=== PATIENT | female | born 1940 | race Caucasian/White ===

== ENCOUNTER 2020-05-19 05:43 | Observation (INO) ==
[2020-05-19] MEDS ORDERED: Buffered Lidocaine 1% SYRIN 1 ml INTRADERM ONE (06:00)
[2020-05-19] MEDS ORDERED: Lactated Ringers 1000 ml BAG 1,000 ML IV SCH (06:00)
[2020-05-19] MEDS ORDERED: ceFAZolin 2 GM PREMIX 2 GM/50 ML BAG ONE (06:34)
[2020-05-19] MEDS ORDERED: Midazolam 5 mg/5 ml VIAL 1 mg/ml 5 ml VIAL (5 mg) ONE (06:48)
[2020-05-19] MEDS ORDERED: fentaNYL 100 mcg/2 ml 50 MCG/ML VIAL ONE (06:48)
[2020-05-19] MEDS ORDERED: Phenylephrine 40 mcg/mL 10mL (400mcg) SYRINGE ONE (06:49)
[2020-05-19] MEDS ORDERED: Propofol 10 MG/ML 20 ML BTL ONE ×2 (06:49→09:31)
[2020-05-19] MEDS ORDERED: Sterile Water for Inj 10 ML ONE (06:49)
[2020-05-19] MEDS ORDERED: EPHEDrine (Pressors) 50 MG/ML VIAL ONE (06:49)
[2020-05-19] MEDS ORDERED: Bupivacaine 0.5% SDV PF 30ML VIAL ONE ×2 (06:49→07:21)
[2020-05-19] MEDS ORDERED: Phenylephrine IV 10 MG/ML 1 ml VIAL ONE (06:56)
[2020-05-19] MEDS ORDERED: ROPIVACAINE 5 MG/ML 30 ML BTL (0.5%) ONE (07:16)
[2020-05-19] MEDS ORDERED: Lidocaine 1% MPF 5 ML VIAL ONE (07:16)
[2020-05-19] MEDS ORDERED: Dexamethasone IV 4 MG/ML VIAL 1 ml VIAL ONE (07:18)
[2020-05-19] MEDS ORDERED: Vancomycin 1,000 MG VIAL ONE (07:21)
[2020-05-19] MEDS ORDERED: Lidocaine 1% w EPI 1:200,000 SDV 30 ML VIAL ONE (07:21)
[2020-05-19] MEDS ORDERED: fentaNYL 100 mcg/2 ml 50 MCG/ML VIAL IV PRN (09:18)
[2020-05-19] MEDS ORDERED: Naloxone 0.4 mg VIAL 0.4 mg/ml 1 ml VIAL IV PRN (09:18)
[2020-05-19] MEDS ORDERED: HYDROmorphone 1 MG/1 ML SYRINGE IV PRN (09:18)
[2020-05-19] MEDS ORDERED: Ondansetron 4 mg VIAL 2 MG/ML 2 ml VIAL IV PRN ×2 (09:18→10:04)
[2020-05-19] MEDS ORDERED: diPHENhydraMINE 25 mg TAB PO PRN (10:04)
[2020-05-19] MEDS ORDERED: Lactulose 30 ml UDC PO PRN (10:04)
[2020-05-19] MEDS ORDERED: Magnesium Hydroxide LIQ 30 ML UDC PO PRN (10:04)
[2020-05-19] MEDS ORDERED: Morphine 2 MG/ML SYRINGE IV PRN (10:04)
[2020-05-19] MEDS ORDERED: Ondansetron ODT 4 mg TAB 4 MG TAB PO PRN (10:04)
[2020-05-19] MEDS ORDERED: diPHENhydraMINE IV 50 MG/ML 1 ml VIAL (BENADRYL) IV PRN (10:04)
[2020-05-19] MEDS ORDERED: POTASSIUM 99 MG PO PRN (10:11)
[2020-05-19] MEDS: D5W 1/2 NS 1000 ml BAG 1,000 ML IV SCH (14:22)
[2020-05-19] MEDS: ceFAZolin 1 GM ADVAN 1 GM in NS 0.9% 50 ML 50 ML IVPB SCH (17:25)
[2020-05-19] MEDS: Magnesium Hydroxide LIQ 30 ML UDC PO SCH (21:09)
[2020-05-20] MEDS: ceFAZolin 1 GM ADVAN 1 GM in NS 0.9% 50 ML 50 ML IVPB SCH ×2 (00:12→07:44)
[2020-05-20] MEDS: D5W 1/2 NS 1000 ml BAG 1,000 ML IV SCH (00:45)
[2020-05-20 05:52] LABS: Hematocrit 29 % (35-47); Mean Platelet Volume 8.7 fL (7.4-10.4); Platelet Count 191 10^3/uL (150-450)
[2020-05-20 06:06] LABS: BUN/Creatinine Ratio 22.9 (8-20); Calcium 8.3 mg/dL (8.6-10.3); EGFR African American 97.7 (>60); EGFR Non-African American 80.7 (>60); Potassium 4.2 mmol/L (3.5-5.0)
[2020-05-20] MEDS: Magnesium Hydroxide LIQ 30 ML UDC PO SCH (07:53)
[2020-05-20] MEDS ORDERED: Vitamin THERAPEUTIC TAB PO SCH (09:00)
[2020-05-20 11:31] VITALS: BP 138/57
[2020-05-20] MEDS ORDERED: Aspirin EC 81 mg TAB.EC (enteric coated) PO SCH (18:00)
== END 2020-05-20 14:00 | disposition home or self-care (01) ==
LOC: INTOOBSV 05:43 → AA 05:43 → SSU 14:18
PROVIDERS: ADMIT Orthopaedic Surgery; ATTEND Orthopaedic Surgery